=== PATIENT | male | born 1955 | race Caucasian/White ===

== ENCOUNTER → 2017-12-04 | Outpatient (REF) | payer OTHER ==
[2017-12-04 11:46] LABS: BASO % 0.7 % (0.0-1.0); EOS # 0.4 10^3/uL (0.0-0.50); EOS % 7.8 % (0.0-3.0); HEMATOCRIT 40.6 % (42.0-52.0); HEMOGLOBIN 13.2 g/dl (14.0-18.0); IMMATURE GRANULOCYTE % 0.4 % (0-0); LYMPH # 1.3 10^3/uL (1.5-4.5); LYMPH % 23.3 % (24.0-44.0); MEAN CORPUSCULAR HEMOGLOBIN 26.1 pg (27.0-33.0); MEAN CORPUSCULAR HGB CONC 32.5 g/dl (32.0-36.5); MEAN CORPUSCULAR VOLUME 80.4 fl (80.0-96.0); MONO # 0.4 10^3/uL (0.0-0.8); MONO % 7.4 % (0.0-5.0); NEUTROPHILS # 3.4 10^3/uL (1.8-7.7); NEUTROPHILS % 60.4 % (36.0-66.0); PLATELET COUNT, AUTOMATED 241 10^3/uL (150-450); RED BLOOD COUNT 5.05 10^6/uL (4.30-6.10); RED CELL DISTRIBUTION WIDTH 13.5 % (11.5-14.5); WHITE BLOOD COUNT 5.7 10^3/uL (4.0-10.0)
[2017-12-04 12:16] LABS: ALBUMIN/GLOBULIN RATIO 1.67 (1.00-1.93); ALKALINE PHOSPHATASE 80 U/L (45-117); ALT/SGPT 23 U/L (12-78); ANION GAP 7 MEQ/L (8-16); AST/SGOT 15 U/L (7-37); BILIRUBIN,TOTAL 0.5 MG/DL (0.2-1.0); BLOOD UREA NITROGEN 18 MG/DL (7-18); CALCIUM LEVEL 8.7 MG/DL (8.8-10.2); CARBON DIOXIDE LEVEL 30 MEQ/L (21-32); CHLORIDE LEVEL 105 MEQ/L (98-107); CHOLESTEROL LEVEL 178 MG/DL (<200); CHOLESTEROL RISK RATIO 3.423 (<5); CREATININE FOR GFR 0.84 MG/DL (0.70-1.30); GLOMERULAR FILTRATION RATE > 60.0 (>49); GLUCOSE, FASTING 85 MG/DL (80-110); HDL CHOLESTEROL 52 MG/DL (>40); LDL CHOLESTEROL 111.6 MG/DL (<100); NON-HDL-C 126 MG/DL; POTASSIUM SERUM 4.3 MEQ/L (3.5-5.1); SODIUM LEVEL 142 MEQ/L (136-145); TOTAL PROTEIN 6.4 GM/DL (6.4-8.2); TRIGLYCERIDES LEVEL 72 MG/DL (<150)
[2017-12-04 12:19] LABS: ESTIMATED AVERAGE GLUCOSE 111 MG/DL (60-110); HEMOGLOBIN A1c 5.5 %
[2017-12-04 12:52] LABS: CREATININE, URINE 59.3 MG/DL; MALB URINE SIEMENS < 5.0 MG/L; MAU/CREAT RATIO 8.4 MCG/MG (0.0-30.0)
== END ==
LOC: M SFHCLERA 08:38
DX: E78.2 Mixed hyperlipidemia (principal); I10 Essential (primary) hypertension; E66.3 Overweight

== ENCOUNTER → 2018-06-03 | Outpatient (REF) | payer SELFPAY, OTHER ==
[2018-06-03 11:58] LABS: BASO % 0.8 % (0.0-1.0); EOS # 0.2 10^3/uL (0.0-0.50); EOS % 3.5 % (0.0-3.0); HEMATOCRIT 40.9 % (42.0-52.0); HEMOGLOBIN 13.3 g/dl (13.5-17.5); LYMPH # 1.4 10^3/uL (1.5-4.5); LYMPH % 28.2 % (24.0-44.0); MEAN CORPUSCULAR HEMOGLOBIN 26.2 pg (27.0-33.0); MEAN CORPUSCULAR HGB CONC 32.5 g/dl (32.0-36.5); MEAN CORPUSCULAR VOLUME 80.5 fl (80.0-96.0); MONO # 0.5 10^3/uL (0.0-0.8); MONO % 10.2 % (0.0-5.0); NEUTROPHILS # 2.7 10^3/uL (1.8-7.7); NEUTROPHILS % 57.3 % (36.0-66.0); PLATELET COUNT, AUTOMATED 232 10^3/uL (150-450); RED BLOOD COUNT 5.08 10^6/uL (4.30-6.10); RED CELL DISTRIBUTION WIDTH 13.8 % (11.5-14.5); WHITE BLOOD COUNT 4.8 10^3/uL (4.0-10.0)
== END ==
LOC: M SFHCLERA 08:42
DX: D64.9 Anemia, unspecified (principal)

== ENCOUNTER → 2018-07-06 | Outpatient (REF) | payer OTHER ==
[2018-07-06 17:48] LABS: BASO % 0.5 % (0.0-1.0); EOS # 0.2 10^3/uL (0.0-0.50); EOS % 2.8 % (0.0-3.0); HEMATOCRIT 37.2 % (42.0-52.0); HEMOGLOBIN 11.9 g/dl (13.5-17.5); IMMATURE GRANULOCYTE % 0.2 % (0-3.0); LYMPH # 1.3 10^3/uL (1.5-4.5); MEAN CORPUSCULAR HEMOGLOBIN 26.6 pg (27.0-33.0); MEAN CORPUSCULAR VOLUME 83.2 fl (80.0-96.0); MONO # 0.5 10^3/uL (0.0-0.8); MONO % 8.5 % (0.0-5.0); PLATELET COUNT, AUTOMATED 255 10^3/uL (150-450); RED BLOOD COUNT 4.47 10^6/uL (4.30-6.10); RED CELL DISTRIBUTION WIDTH 14.3 % (11.5-14.5)
[2018-07-06 17:53] LABS: FERRITIN 61 NG/ML (26-388); IRON (FE) 62 UG/DL (65-175); TOTAL IRON BINDING CAPACITY 326 UG/DL (250-450)
== END ==
LOC: M SFHCLERA 11:56
DX: D64.9 Anemia, unspecified (principal)

== ENCOUNTER → 2018-12-30 | Outpatient (REF) | payer OTHER ==
[~2018-12-30] MED LIST: ASPI81TA85 PO; IMOD2CAP PO; MOTR200T44 PO; SIMV40TA2 PO; TOPR25TA13 PO; ZYRT10CA PO
[2018-12-30 11:56] LABS: APPEARANCE, URINE CLEAR (CLEAR); BACTERIA, URINE AUTO NEGATIVE (NEGATIVE); BILIRUBIN, URINE AUTO NEGATIVE (NEGATIVE); BLOOD, URINE BLOOD NEGATIVE (NEGATIVE); COLOR, URINE YELLOW (YELLOW); GLUCOSE, URINE (UA) AUTO NEGATIVE (NEGATIVE); KETONE, URINE AUTO NEGATIVE (NEGATIVE); LEUKOCYTE ESTERASE, URINE AUTO NEGATIVE (NEGATIVE); NITRITE, URINE AUTO NEGATIVE (NEGATIVE); PROTEIN, URINE AUTO NEGATIVE (NEGATIVE); RBC, URINE AUTO 0 /HPF (0-3); SPECIFIC GRAVITY URINE AUTO 1.012 (1.002-1.035); SQUAMOUS EPITHELIAL CELL UR AU 1 /HPF (0-6); UROBILINOGEN, URINE AUTO 0.2 mg/dL (0.0-2.0); WBC, URINE AUTO 0 /HPF (0-3)
[2018-12-30 12:02] LABS: BASO % 0.7 % (0.0-1.0); EOS # 0.3 10^3/uL (0.0-0.50); EOS % 4.8 % (0.0-3.0); LYMPH # 1.4 10^3/uL (1.5-4.5); MEAN CORPUSCULAR HEMOGLOBIN 26.6 pg (27.0-33.0); MEAN CORPUSCULAR HGB CONC 32.5 g/dl (32.0-36.5); MEAN CORPUSCULAR VOLUME 81.8 fl (80.0-96.0); MONO # 0.5 10^3/uL (0.0-0.8); MONO % 8.2 % (0.0-5.0); NEUTROPHILS # 3.5 10^3/uL (1.8-7.7); NEUTROPHILS % 62.1 % (36.0-66.0); PLATELET COUNT, AUTOMATED 244 10^3/uL (150-450); RED BLOOD COUNT 4.89 10^6/uL (4.30-6.10); WHITE BLOOD COUNT 5.6 10^3/uL (4.0-10.0)
[2018-12-30 12:10] LABS: ALBUMIN 3.8 GM/DL (3.2-5.2); ALT/SGPT 39 U/L (12-78); BILIRUBIN,TOTAL 0.4 MG/DL (0.2-1.0); BLOOD UREA NITROGEN 16 MG/DL (7-18); CALCIUM LEVEL 8.4 MG/DL (8.8-10.2); CARBON DIOXIDE LEVEL 30 MEQ/L (21-32); CHLORIDE LEVEL 103 MEQ/L (98-107); CHOLESTEROL LEVEL 196 MG/DL (<200); FERRITIN 135 NG/ML (26-388); GLOMERULAR FILTRATION RATE > 60.0 (>49); GLUCOSE, FASTING 93 MG/DL (70-100); HDL CHOLESTEROL 46 MG/DL (>40); IRON (FE) 107 UG/DL (65-175); LDL CHOLESTEROL 131 MG/DL (<100); NON-HDL-C 150 MG/DL; PERCENT SATURATION 36.4 % (19.7-50.0); POTASSIUM SERUM 4.3 MEQ/L (3.5-5.1); SODIUM LEVEL 139 MEQ/L (136-145); TOTAL IRON BINDING CAPACITY 294 UG/DL (250-450); TOTAL PROTEIN 6.1 GM/DL (6.4-8.2); TRIGLYCERIDES LEVEL 95 MG/DL (<150)
[2018-12-30 12:43] LABS: HEMOGLOBIN A1c 5.9 %
== END ==
LOC: M SFHCLERA 08:36
PROVIDERS: ATTEND Family Medicine
DX: E78.5 Hyperlipidemia, unspecified (principal); D50.9 Iron deficiency anemia, unspecified

== ENCOUNTER → 2019-06-29 | Outpatient (REF) | payer OTHER ==
[~2019-06-29] MED LIST changes: +TOPR25TA PO; -TOPR25TA13 PO
[2019-06-29 13:15] LABS: HEMATOCRIT 41.3 % (42.0-52.0); HEMOGLOBIN 13.2 g/dl (13.5-17.5)
[2019-06-29 13:24] LABS: CHOLESTEROL RISK RATIO 3.23 (<5)
[2019-06-29 13:44] LABS: HEMOGLOBIN A1c 6.1 %
== END ==
LOC: M SFHCLERA 08:23
PROVIDERS: ATTEND Family Medicine
DX: Z11.59 Encounter for screening for other viral diseases (principal); Z12.5 Encounter for screening for malignant neoplasm of prostate; E78.5 Hyperlipidemia, unspecified; D64.9 Anemia, unspecified; R73.02 Impaired glucose tolerance (oral)

== ENCOUNTER → 2019-07-01 | Outpatient (REF) | payer OTHER | LOC: M SMT 13:11 | PROVIDERS: ATTEND Nurse Practitioner Family | DX: R97.20 Elevated prostate specific antigen [PSA] (principal) ==

== ENCOUNTER → 2019-07-13 | Outpatient (CLI) | payer OTHER ==
[~2019-07-13] MED LIST changes: +FERR325T81 PO; +LISI10TA4 PO; -SIMV40TA2 PO; +SIMV40TA20 PO
--- NOTE | 2019-07-13 14:01 | REP ---
TRANSRECTAL ULTRASOUND PROSTATE WITH ULTRASOUND GUIDANCE FOR PROSTATE BIOPSY: Real-time ultrasound evaluation of prostate performed utilizing transrectal probe. Size of the gland is 3.8 x 3.0 x 4.9 cm for a total volume of 29.5 mL. Hypoechoic nodule in the mid apex measures 5 x 4 mm. Hypoechoic nodule in the left apex measures 13 x 7 mm. Scattered cysts and calcifications are also noted. Ultrasound guidance was provide for Dr. Moore who performed ultrasound-guided biopsy of the prostate. Electronically Signed by Jamarcus Patterson MD 07/14/2019 09:44 A
== END ==
LOC: M SMT PRO 10:17
PROVIDERS: ATTEND Urology
DX: C61 Malignant neoplasm of prostate (principal)
CPT/HCPCS: 76872; 76942; G0416

== ENCOUNTER → 2019-07-19 | Outpatient (CLI) | payer OTHER ==
[~2019-07-19] MED LIST changes: -FERR325T81 PO; -LISI10TA4 PO; +SIMV40TA2 PO; -SIMV40TA20 PO
[2019-07-19 17:56] LABS: BLOOD UREA NITROGEN 18 MG/DL (7-18); CALCIUM LEVEL 8.7 MG/DL (8.8-10.2); CARBON DIOXIDE LEVEL 28 MEQ/L (21-32); CHLORIDE LEVEL 106 MEQ/L (98-107); CREATININE FOR GFR 1.06 MG/DL (0.70-1.30); GLOMERULAR FILTRATION RATE > 60.0 (>49); GLUCOSE, FASTING 103 MG/DL (70-100); POTASSIUM SERUM 3.8 MEQ/L (3.5-5.1); SODIUM LEVEL 140 MEQ/L (136-145)
== END ==
LOC: M SMT 15:33
PROVIDERS: ATTEND Urology
DX: C61 Malignant neoplasm of prostate (principal)

== ENCOUNTER → 2019-07-28 | Outpatient (CLI) | payer OTHER ==
[~2019-07-28] MED LIST changes: +FERR325T81 PO; +ISOVUE-370 76% 100ML VIAL (Q9967) As Ordered ONE; +LISI10TA4 PO; -SIMV40TA2 PO; +SIMV40TA20 PO
--- NOTE | 2019-07-28 16:21 | REP ---
Clinical: History of prostate cancer. Technique: Axial contrast enhanced images from the lung bases to the pubic symphysis using 100 ml Isovue 370 intravenous contrast material with delayed images of the abdomen as well as coronal and sagittal re-formations. Comparison: 06/03/2016. Findings: Lung bases demonstrate minimal chronic changes. Visualized heart and pericardium normal. Fatty infiltration to the liver noted without focal hepatic lesion. Spleen, pancreas, gallbladder, bilateral adrenal glands and kidneys are normal. The enteric system is without obstruction or acute inflammatory process. Normal terminal ileum and appendix are identified in the right lower quadrant. Sigmoid diverticula noted without acute diverticulitis. Pelvis demonstrates mildly prominent and heterogeneous enhancement to the prostate gland with mass effect on the base of the bladder. No periprostatic stranding, fluid or pelvic adenopathy is appreciated. Abdominal aorta and vasculature appear normal. No ascites. No free air. No intraperitoneal or retroperitoneal adenopathy. Musculoskeletal structures demonstrate degenerative changes without focal osseous abnormality. Impression: 1. Hepatic steatosis. 2. Mildly prominent heterogeneous enhancement to the prostate gland with mass effect on the bladder but no associated adenopathy or obvious pelvic mass/metastatic disease. 3. Sigmoid diverticula without acute diverticulitis. Electronically Signed by Zach Coyle MD 07/28/2019 04:12 P
== END ==
LOC: M RAD 15:41
PROVIDERS: ATTEND Urology
DX: C61 Malignant neoplasm of prostate (principal); K76.0 Fatty (change of) liver, not elsewhere classified
CPT/HCPCS: 74177; Q9967

== ENCOUNTER → 2019-07-30 | Outpatient (CLI) | payer OTHER ==
[~2019-07-30] MED LIST changes: -FERR325T81 PO; -ISOVUE-370 76% 100ML VIAL (Q9967) As Ordered ONE; -LISI10TA4 PO; +SIMV40TA2 PO; -SIMV40TA20 PO
--- NOTE | 2019-07-30 14:49 | REP ---
WHOLE BODY BONE SCAN: HISTORY: Prostate carcinoma. TECHNIQUE: 21.9 mCi technetium 99m MDP is injected and standard whole body bone scan imaging was acquired. No comparison scintigraphy. FINDINGS: There is a focus of mildly increased uptake in the mandibular ramus on the right side which may reflect periodontal disease although this cannot be stated with confidence. There is an arthritic pattern of increased uptake in the knees and shoulders bilaterally and in the small joints of the hands. There is mild degenerative disc uptake in the thoracic spine and to a lesser extent, in the lumbar spine. There is uptake in bilateral kidneys and in the urinary bladder. There is no compelling evidence to suggest skeletal metastatic disease. IMPRESSION: No definite evidence of metastatic disease. Right mandibular uptake of uncertain significance possibly periodontal or dental inflammation. Electronically Signed by Seth Rodriguez MD 07/30/2019 04:44 P
== END ==
LOC: M RAD 09:52
PROVIDERS: ATTEND Urology
DX: C61 Malignant neoplasm of prostate (principal)

== ENCOUNTER → 2019-08-17 | Outpatient (CLI) | payer OTHER ==
[~2019-08-17] MED LIST changes: +FERR325T81 PO; +LISI10TA4 PO
--- NOTE | 2019-08-18 16:18 | RADONC ---
RADIATION ONCOLOGY CONSULTATION NOTE DATE: 08/17/2019 CHART NUMBER: [id number] DIAGNOSIS: Prostate cancer. STAGE: III A, T2c, N0, M0, PSA 37.1, grade group 3, [place] score 7 (4-3). ECOG PERFORMANCE STATUS: 0 CONSULTATION NOTE: Mr. Suazo is a very pleasant, 63-year-old white male with the diagnosis of what appears to be a stage III A, T2c, N0, M0, moderate to poorly differentiated [place] score 7 (4-3) adenocarcinoma of the prostate, grade group 3 with a PSA score of 37.1 who is presenting to us today in consultation regarding the possibilities of definitive external beam radiation therapy with IMRT/IGRT. HISTORY OF PRESENT ILLNESS: The patient was in his usual state of health but routine PSA was done on 06/29/2019 and was 37.10. On 07/13/2019, the patient underwent prostate needle biopsy and pathology revealed a [place] score 7 (403) adenocarcinoma of prostate. He has since initiated hormonal therapy and is now presenting to us for discussion of definitive external beam radiation therapy with IMRT/IGRT. ALLERGIES: The patient has NO KNOWN DRUG ALLERGIES. PAST MEDICAL HISTORY: The patient's past medical history is positive for hypertension and arthritis. He has had a cardiac cath 2 years ago, and has had a tonsillectomy and appendectomy. He has a history of C diff and Giardia. SOCIAL HISTORY: The patient does not smoke cigarettes nor abuse alcohol. FAMILY HISTORY: The patient's family history is positive for a father with throat cancer and a mother with ovarian cancer. REVIEW OF SYSTEMS: The patient's review of systems is noncontributory. Denies nausea, vomiting, fevers, chills, night sweats, diplopia, headaches, anxiety or depression, anorexia, weight loss, visual disturbances, chest pain, urinary or bowel difficulties, bone pain, or neurological problems. PHYSICAL EXAMINATION: The patient is a well-developed, well-nourished male in no acute distress. HEENT exam is normocephalic, atraumatic. Extraocular movements are intact. There is no palpable cervical, supraclavicular, infraclavicular, axillary, or inguinal lymphadenopathy present. Lungs are clear to auscultation and percussion. Heart has a regular rate and rhythm. Abdomen is benign with no hepatosplenomegaly, masses, or tenderness. Rectal examination reveals a normal anal sphincter tone. His prostate is smooth with no evidence of nodularity. Skeletal examination reveals no tenderness to pressure or percussion of the bony skeleton. Extremities reveal no clubbing, cyanosis, or edema. Neurologic exam is grossly intact, as is the remainder of the physical examination. MEDICAL NECESSITY: IMRT/IGRT is clinically indicated for the highly conformal dose planning required. The target volume is in close proximity to critical structures, such as the rectum, bladder, small bowel, and femoral heads. The volume of interest must be covered with narrow margins to adequately protect immediately adjacent structures. The plan requires interpretation of complex testing such as CT localization. As noted above, special planning (IMRT) and localizing (IGRT) is required and essential to maximally protect sensitive normal tissue structures which cannot be accomplished using conventional 3-dimensional planning. ASSESSMENT: Clearly the patient is a candidate for external beam radiation therapy and I have so informed him. I have discussed with the patient in detail the potential benefits as well as possible acute and chronic sequelae of external beam radiation therapy. We have discussed logistics of treatment planning, simulation and subsequent fractionated daily radiation treatments. The patient is scheduled for placement of fiducial markers on August 31. I am scheduling the patient for subsequent initiation of treatment planning and CT simulation approximately 2 weeks later. Thank you for allowing us to participate in the care of this very pleasant gentleman. If I could be of any further assistance or provide you with any information, please free to contact me anytime. As always, warm regards. cc: MD Jamarcus Bonilla MD
== END ==
LOC: M ONCR 08:53
PROVIDERS: ATTEND Radiology Radiation Oncology
DX: C61 Malignant neoplasm of prostate (principal)

== ENCOUNTER → 2019-08-31 | Outpatient (CLI) | payer OTHER ==
--- NOTE | 2019-08-31 16:46 | REP ---
Transrectal sonographic guidance: History: Prostate carcinoma. Findings: Transrectal sonographic guidance is provided to Dr. Moore who performed fiducial marker placement procedure. Electronically Signed by Seth Rodriguez MD 08/31/2019 04:56 P
== END ==
LOC: M SMT 08:07
PROVIDERS: ATTEND Urology
DX: C61 Malignant neoplasm of prostate (principal)

== ENCOUNTER → 2019-09-23 | Outpatient (RCR) | payer OTHER ==
[2019-09-15 14:49] LABS: HEMATOCRIT 38.8 % (42.0-52.0); HEMOGLOBIN 12.8 g/dl (13.5-17.5); LYMPH % 25.3 % (24.0-44.0); MEAN CORPUSCULAR HEMOGLOBIN 26.4 pg (27.0-33.0); MEAN CORPUSCULAR VOLUME 79.9 fl (80.0-96.0); NEUTROPHILS # 4.4 10^3/uL (1.8-7.7); NEUTROPHILS % 66.2 % (36.0-66.0); RED BLOOD COUNT 4.85 10^6/uL (4.30-6.10); WHITE BLOOD COUNT 6.7 10^3/uL (4.0-10.0)
--- NOTE | 2019-09-16 10:00 | RADONC ---
RADIATION ONCOLOGY SIMULATION NOTE DATE: 09/15/2019 This is a diagnosis who has a diagnosis of prostate cancer. The patient was placed in a supine position and an immobilization device was constructed for patient's stability to ensure accurate treatments on a day-to-day basis. He was then scanned via our CT simulator at 3-mm intervals to capture images for external contouring and contouring of vital organs within the pelvis. He tolerated this whole entire process quite well with no untoward events. I was present during the entire simulation process. We will now utilize these images for contouring of internal and external structures in order to formulated an appropriate IMRT/IGRT plan. LORI
== END ==
LOC: M ONCR 09-15 13:48
PROVIDERS: ATTEND Radiology Radiation Oncology
DX: C61 Malignant neoplasm of prostate (principal)

== ENCOUNTER 2019-10-20 15:05 | Outpatient (RCR) | payer OTHER ==
--- NOTE | 2019-09-27 15:58 | RADONC ---
RADIATION ONCOLOGY PROGRESS NOTE DATE: 09/27/2019 CHART NUMBER: [id number] PROGRESS NOTE: Mr. Cameron Suazo with an adenocarcinoma of the prostate is currently receiving local regional radiotherapy and he has achieved a dose of 540 cGy thus far. The treatments have been well tolerated as he denies any side effects related to his disease or to his treatments. REVIEW OF SYSTEMS: He specifically denies any nausea, vomiting, diarrhea, dysuria, hematuria or blood per rectum. His energy level is satisfactory and he is able to maintain most of his day-to-day activities without any alteration of his lifestyle. Skin irritation is denied. EXAMINATION FINDINGS: The skin within the irradiated volume shows neither erythema nor desquamation. Lymphatics no palpable peripheral lymphadenopathy is appreciated. Lungs are clear. The remainder of the examination findings are unchanged. IMPRESSION: Tolerating therapy well. PLAN: Treatments to continue.
--- NOTE | 2019-10-04 16:28 | RADONC ---
RADIATION ONCOLOGY PROGRESS NOTE DATE: 10/04/2019 CHART NUMBER: [id number] PROGRESS NOTE: Mr. Suazo is presently at a dose of 1440 cGy to his prostate and is tolerating treatments quite well at this point with no significant difficulties related to his radiation therapy other than some rectal urgency. REVIEW OF SYSTEMS: The patient's review of systems is positive for rectal urgency, but is otherwise noncontributory. Denies nausea, vomiting, fevers, chills, night sweats, diplopia, headaches, anxiety or depression, anorexia, weight loss, visual disturbances, chest pain, urinary or bowel difficulties, bone pain, or neurological problems. PHYSICAL EXAMINATION: The patient's skin is in good condition with no evidence of moist or dry desquamation. The remainder of his physical exam remains unchanged. Mr. Suazo is tolerating treatments quite well and radiation will continue as scheduled. He has been given dietary recommendations and a recommendation to use Imodium if he is having significant loose bowel movements.
--- NOTE | 2019-10-12 11:24 | RADONC ---
RADIATION ONCOLOGY PROGRESS NOTE DATE: 10/11/2019 CHART NUMBER: [id number] Mr. Suazo is presently at a dose of 2340 cGy to his prostate and seminal vesicles and is tolerating treatments quite well at this point with no complaints related to his radiation therapy. He is having no urinary or bowel difficulties and no bone pain. The patient's review of systems is noncontributory. He denies nausea, vomiting, fevers, chills, night sweats, diplopia, headaches, anxiety or depression, anorexia, weight loss, visual disturbances, chest pain, urinary or bowel difficulties, bone pain, or neurological problems. PHYSICAL EXAMINATION: The patient's skin is in good condition with no evidence of moist or dry desquamation. The remainder of the physical exam remains unchanged. Mr. Suazo is tolerating treatments quite well and radiation will continue as scheduled.
--- NOTE | 2019-10-20 09:06 | RADONC ---
RADIATION ONCOLOGY PROGRESS NOTE DATE OF SERVICE: 10/18/2019 CHART NUMBER: [id number] Mr. Suazo is presently at a dose of 3240 cGy to his prostate and is tolerating treatments quite well at this point with no complaints at this time related to his radiation therapy other than some loose bowel movements. The patient's review of systems is positive for some loose bowel movements but is otherwise noncontributory. Denies nausea, vomiting, fevers, chills, night sweats, diplopia, headaches, anxiety or depression, anorexia, weight loss, visual disturbances, chest pain, urinary or bowel difficulties, bone pain, or neurological problems. PHYSICAL EXAMINATION: The patient's skin is in good condition with no evidence of radiation change present. There is no moist or dry desquamation. The remainder of his physical exam remains unchanged. Mr. Suazo is tolerating treatments quite well and radiation will continue as scheduled.
[~2019-10-20 15:05] MED LIST changes: -SIMV40TA2 PO; +SIMV40TA20 PO
== END 2019-10-23 ==
LOC: M ONCR 15:05
PROVIDERS: ATTEND Radiology Radiation Oncology
DX: C61 Malignant neoplasm of prostate (principal)

== ENCOUNTER → 2019-11-23 | Outpatient (RCR) | payer OTHER ==
--- NOTE | 2019-10-27 07:23 | RADONC ---
RADIATION ONCOLOGY TREATMENT NOTE DATE OF SERVICE: 10/26/2019 Mr. Suazo carries the diagnosis of prostate CA. So far, he has received a dose of 3960 cGy in 22 fractions. He has more frequent bowel movements, but he said not loose or constipated. He has no urinary symptoms. He denies any nausea or vomiting. His weight is stable. No bone pains. Otherwise, he tolerates treatment well and treatment will continue as planned. MTDD
--- NOTE | 2019-11-02 00:13 | RADONC ---
RADIATION ONCOLOGY PROGRESS NOTE DATE: 11/01/2019 CHART NUMBER: [id number] Mr. Suazo is presently at a dose of 4500 cGy to his prostate and is tolerating treatments quite well at this point with no complaints related to his radiation therapy. He is having no urinary or bowel difficulties and no bone pain. REVIEW OF SYSTEMS: The patient's review of systems is noncontributory. He denies nausea, vomiting, fevers, chills, night sweats, diplopia, headaches, anxiety or depression, anorexia, weight loss, visual disturbances, chest pain, urinary or bowel difficulties, bone pain, or neurological problems. PHYSICAL EXAMINATION: The patient's skin is in good condition with no evidence of radiation change present. There is no moist or dry desquamation. The remainder of his physical exam remains unchanged. Mr. Suazo is tolerating treatments quite well and radiation will continue as scheduled.
--- NOTE | 2019-11-10 08:39 | RADONC ---
RADIATION ONCOLOGY PROGRESS NOTE DATE: 11/08/2019 CHART #: [id number] Mr. Suazo is presently at a dose of 5580 cGy to his prostate and is tolerating treatments quite well at this point with no significant difficulties related to his radiation therapy. He is having no significant urinary or bowel problems and no bone pain. REVIEW OF SYSTEMS: The patient's review of systems is noncontributory. Denies nausea, vomiting, fevers, chills, night sweats, diplopia, headaches, anxiety or depression, anorexia, weight loss, visual disturbances, chest pain, urinary or bowel difficulties, bone pain, or neurological problems. PHYSICAL EXAMINATION: The patient's skin is in good condition with no evidence of moist or dry desquamation. The remainder of his physical exam remains unchanged. Mr. Suazo is tolerating treatments quite well and radiation will continue as scheduled.
--- NOTE | 2019-11-23 12:47 | RADONC ---
RADIATION ONCOLOGY PROGRESS NOTE DATE OF SERVICE: 11/22/2019 CHART NUMBER: [id number] Mr. Suazo, with a diagnosis of adenocarcinoma of the prostate stage III A, [id number], is currently receiving local regional radiotherapy and he has achieved a dose to date of 6120 cGy of a proposed 7920 cGy. He is tolerating his therapy well and has no problems related to his disease or to his treatments. He specifically denies any nausea, vomiting, diarrhea, dysuria, hematuria or blood per rectum. His energy level is excellent and he is able to maintain most of his day-to-day activities without any alteration of his lifestyle. Skin irritation is not reported. PHYSICAL EXAMINATION: The skin within the irradiated volume shows neither erythema nor desquamation. Lymphatics: No palpable peripheral lymphadenopathy is appreciated. Lungs are clear. Heart is regular without murmurs. Abdomen is without evidence of hepatomegaly, masses, deep abdominal tenderness. Remainder of this examination is unchanged. IMPRESSION: Tolerating therapy well. PLAN: Treatments to continue. Thank you for allowing us the opportunity of participation in the joint management of this very fine gentleman.
== END ==
LOC: M ONCR 10-25 15:06
PROVIDERS: ATTEND Radiology Radiation Oncology
DX: C61 Malignant neoplasm of prostate (principal)

== ENCOUNTER 2019-11-30 15:05 | Outpatient (RCR) | payer OTHER ==
--- NOTE | 2019-11-30 06:45 | RADONC ---
RADIATION ONCOLOGY PROGRESS NOTE DATE: 11/29/2019 CHART NUMBER: [id number] Mr. Suazo is presently approaching completion of external beam radiation therapy. He completes treatments tomorrow. The patient is doing quite well at this time with no urinary or bowel symptoms and no other problems. REVIEW OF SYSTEMS: The patient's review of systems is noncontributory. He denies nausea, vomiting, fevers, chills, night sweats, diplopia, headaches, anxiety or depression, anorexia, weight loss, visual disturbances, chest pain, urinary or bowel difficulties, bone pain or neurological problems. PHYSICAL EXAMINATION: The patient's skin shows no evidence of moist or dry desquamation. The remainder of his physical exam remains unchanged. Mr. Suazo is tolerating treatments quite well and radiation is scheduled for completion tomorrow.
--- NOTE | 2019-12-01 09:26 | RADONC ---
RADIATION ONCOLOGY TREATMENT SUMMARY DATE: 11/30/2019 CHART NUMBER: [id number] DIAGNOSIS: Prostate cancer. STAGE: IIIA, [id number], PSA 3.1, grade group 3, [place] score 7 (4-3). ECOG PERFORMANCE STATUS: 0 TREATMENT SUMMARY: Mr. Suazo is a very pleasant 64-year-old white male with the diagnosis of what appears to be a stage IIIA, [id number], moderate to poorly differentiated [place] 7 (4-3) adenocarcinoma of the prostate, grade group 3 with a PSA level of 37.1 who presented to us for consideration of definitive external beam radiation therapy with IMRT/IGRT. We treated the patient to the prostate for a total dose of 7920 cGy delivered in 44 fractions of 180 cGy each over 62 elapsed days from 09/23/2019 through 11/30/2019. The patient's prostate was treated on a linear accelerator utilizing a 6 MV photon beam via IMRT/IGRT. We initially treated the prostate, seminal vesicles and first echelon of lymph nodes to a dose of 4500 cGy and subsequently coned down to the prostate and seminal vesicles to deliver an additional 900 cGy bringing the seminal vesicles to a total dose of 5400 cGy. We then boosted the prostate itself for an additional 2520 cGy, once again bringing the prostate to a total of 7920 cGy. Mr. Suazo tolerated his treatments quite well and was able to complete therapy as prescribed without interruption. I have scheduled the patient to see me again in 1 month for further followup. He will also continue to be followed by his other physicians as well. cc: MD Jamarcus oBnilla MD
== END 2019-12-24 ==
LOC: M ONCR 15:05
PROVIDERS: ATTEND Radiology Radiation Oncology
DX: C61 Malignant neoplasm of prostate (principal)

== ENCOUNTER → 2019-12-30 | Outpatient (CLI) | payer OTHER | LOC: M LRY 08:49 | PROVIDERS: ATTEND Radiology Radiation Oncology | DX: C61 Malignant neoplasm of prostate (principal) ==

== ENCOUNTER → 2019-12-30 | Outpatient (REF) | payer OTHER ==
[2019-12-30 12:04] LABS: BASO % 0.7 % (0.0-1.0); EOS # 0.3 10^3/uL (0.0-0.5); EOS % 5.7 % (0.0-3.0); HEMATOCRIT 38.9 % (42.0-52.0); HEMOGLOBIN 12.5 g/dl (13.5-17.5); LYMPH # 0.6 10^3/uL (1.5-5.0); LYMPH % 12.5 % (24.0-44.0); MEAN CORPUSCULAR HEMOGLOBIN 27.1 pg (27.0-33.0); MEAN CORPUSCULAR HGB CONC 32.1 g/dl (32.0-36.5); MEAN CORPUSCULAR VOLUME 84.4 fl (80.0-96.0); MONO # 0.5 10^3/uL (0.0-0.8); MONO % 10.5 % (0.0-5.0); NEUTROPHILS # 3.2 10^3/uL (1.5-8.5); NEUTROPHILS % 70.4 % (36.0-66.0); PLATELET COUNT, AUTOMATED 225 10^3/uL (150-450); RED BLOOD COUNT 4.61 10^6/uL (4.30-6.10); WHITE BLOOD COUNT 4.6 10^3/uL (4.0-10.0)
[2019-12-30 12:16] LABS: ALT/SGPT 43 U/L (12-78); BILIRUBIN,TOTAL 0.4 MG/DL (0.2-1.0); BLOOD UREA NITROGEN 15 MG/DL (7-18); CALCIUM LEVEL 9.2 MG/DL (8.8-10.2); CARBON DIOXIDE LEVEL 33 MEQ/L (21-32); CHLORIDE LEVEL 103 MEQ/L (98-107); CHOLESTEROL LEVEL 171 MG/DL (<200); CHOLESTEROL RISK RATIO 2.758 (<5); FERRITIN 202 NG/ML (26-388); GLOMERULAR FILTRATION RATE > 60.0 (>49); GLUCOSE, FASTING 88 MG/DL (70-100); HDL CHOLESTEROL 62 MG/DL (>40); IRON (FE) 56 UG/DL (65-175); LDL CHOLESTEROL 81 MG/DL (<100); NON-HDL-C 109 MG/DL; PERCENT SATURATION 17.4 % (19.7-50.0); POTASSIUM SERUM 4.3 MEQ/L (3.5-5.1); SODIUM LEVEL 140 MEQ/L (136-145); TOTAL IRON BINDING CAPACITY 322 UG/DL (250-450); TOTAL PROTEIN 6.4 GM/DL (6.4-8.2); TRIGLYCERIDES LEVEL 141 MG/DL (<150)
[2019-12-30 12:43] LABS: HEMOGLOBIN A1c 5.9 %
== END ==
LOC: M SFHCLERA 08:14
PROVIDERS: ATTEND Family Medicine
DX: R73.02 Impaired glucose tolerance (oral) (principal); D50.9 Iron deficiency anemia, unspecified

== ENCOUNTER → 2020-01-05 | Outpatient (CLI) | payer OTHER ==
--- NOTE | 2020-01-06 11:16 | RADONC ---
RADIATION ONCOLOGY DATE: 01/05/2020 CHART NUMBER: [id number] DIAGNOSIS Prostate cancer. STAGE: III A, T2c N0 M0. His original PSA was 37.1. Moo score 7 (4+3). Mr. Suazo is a very pleasant 64-year-old gentleman who carries the diagnosis of stage III A prostate CA, T2c N0 M0 [place] 7 (4+3) and PSA 37.1. He was recommended ADT and radiation therapy. The radiation therapy was completed on 11/30/2019 and he is on ADT scheduled for a third injection in 3 months. INTERVAL HISTORY: He has no issues since completion of treatment. He said his nocturia is much improved. Now it is a couple of times a night. It used to be every hour or 1-1/2 hours. He is getting energy back. SYSTEMIC REVIEW: He denies any recent weight changes, weight loss, fatigue. However, he is still experiencing hot flashes. HEENT: Denies any visual problems or hearing problems. Respiratory: He has no wheezing or coughing. Cardiovascular: Denies palpitation or chest pain. Gastrointestinal: Denies nausea, vomiting, diarrhea, constipation or gastroesophageal reflux disease. Genitourinary: He denies any urinary frequency during the daytime. Nocturia is much improved two a night. No urgency. Musculoskeletal: Denies any bone pain, arthritis. PHYSICAL EXAMINATION: Patient is a well-developed, nourished, not in apparent distress. HEENT: Normocephalic. There are no palpable lymphadenopathies in the neck or axilla bilaterally. Lungs: Clear to auscultation. Heart is regular rate and rhythm. Abdomen is soft, nontender, nondistended without any possible mass or organomegaly. Skeletal examination: There are no bony tenderness over the spine or rib cages. Extremities: No swelling or cyanosis. Musculoskeletal intact. He has mild gynecomastia in both breasts. ASSESSMENT AND RECOMMENDATION: This is a pleasant 64-year-old gentleman who carries the diagnosis of stage III A prostate CA, [place] 7 (4+3) and a PSA of 37.1. He started hormone therapy and completed radiation therapy on November 30, 2019. His last PSA was at the start of ADT was 3.1 and at the completion of treatment, most recent PSA on 12/30/2019 was reported to be 1.13. He was advised continuous followup care wit the physicians involved and he was also asked to return here in 3 months for followup. LORI
== END ==
LOC: M ONCR 09:16
PROVIDERS: ATTEND Radiology Radiation Oncology
DX: C61 Malignant neoplasm of prostate (principal)

== ENCOUNTER → 2020-03-01 | Outpatient (REF) | payer OTHER | LOC: M LABSMT 13:57 | PROVIDERS: ATTEND Urology | DX: C61 Malignant neoplasm of prostate (principal) ==

== ENCOUNTER → 2020-04-05 | Outpatient (CLI) | payer OTHER ==
--- NOTE | 2020-04-09 14:20 | RADONC ---
RADIATION ONCOLOGY CONSULTATION NOTE DATE: 04/05/2020 This is a telemedicine visit. The patient was informed of the risks including security breech, technological failure, inability to perform a comprehensive physical exam which could delay or prevent an accurate diagnosis, and potential complications from treatment decisions rendered over a telemedicine platform. The patient understands and consented to the use of telehealth services phone only. CHART NUMBER: [id number] DIAGNOSIS: Prostate cancer. STAGE: III A, T2c, N0, M0, PSA 37.1, grade group 3, [place] score 7 (4-3). ECOG PERFORMANCE STATUS: 0 FOLLOWUP NOTE: Mr. Suazo is a very pleasant 64-year-old white male with the diagnosis of a stage III, T2c, N0, M0 moderate to poorly differentiated [place] score 7 (4-3) adenocarcinoma of prostate, grade group 3 with a PSA level initially at 37.1 who is presenting to us today for routine followup visit 4 months post completion of external beam radiation therapy. The patient presents today reporting that he is doing quite well with no complaints at this time related to his radiation therapy or disease. He has no urinary or bowel difficulties and no bone pain. REVIEW OF SYSTEMS: The patient's review of systems is noncontributory. Denies nausea, vomiting, fevers, chills, night sweats, diplopia, headaches, anxiety or depression, anorexia, weight loss, visual disturbances, chest pain, urinary or bowel difficulties, bone pain, or neurological problems. PHYSICAL EXAMINATION: Physical exam was deferred as this was a telephone consultation. ASSESSMENT: The patient is clinically ROLANDO at this time. He is scheduled to see Dr. Moore in August, who is continuing with his hormonal treatments and doing routine followup as well. In light of that, I am discharging this patient from my followup at this time except on a p.r.n. basis. cc: MD Jamarcus Bonilla MD
== END ==
LOC: M ONCR 09:19
PROVIDERS: ATTEND Radiology Radiation Oncology
DX: C61 Malignant neoplasm of prostate (principal)

== ENCOUNTER → 2020-09-05 | Outpatient (REF) | payer OTHER ==
[~2020-09-05] MED LIST changes: -ASPI81TA85 PO; +ASPI81TA86 PO
== END ==
LOC: M PLALAB 10:28
PROVIDERS: ATTEND Urology
DX: C61 Malignant neoplasm of prostate (principal)

== ENCOUNTER → 2021-03-09 | Outpatient (REF) | payer OTHER ==
[~2021-03-09] MED LIST changes: +LISI10TA22 PO; -LISI10TA4 PO
== END ==
LOC: M PLALAB 16:56
PROVIDERS: ATTEND Urology
DX: C61 Malignant neoplasm of prostate (principal)

== ENCOUNTER → 2021-09-17 | Outpatient (CLI) | payer OTHER | LOC: M WUC 15:20 | PROVIDERS: ATTEND Urology | DX: C61 Malignant neoplasm of prostate (principal) ==

== ENCOUNTER → 2021-11-08 | Outpatient (CLI) | payer OTHER ==
[2021-11-08 12:25] LABS: BASO % 0.4 % (0.0-1.0); EOS # 0.2 10^3/uL (0.0-0.5); EOS % 3.8 % (0.0-3.0); HEMOGLOBIN 12.3 g/dl (13.5-17.5); LYMPH # 0.7 10^3/uL (1.5-5.0); LYMPH % 13.1 % (24.0-44.0); MEAN CORPUSCULAR HEMOGLOBIN 26.4 pg (27.0-33.0); MEAN CORPUSCULAR HGB CONC 31.5 g/dl (32.0-36.5); MEAN CORPUSCULAR VOLUME 83.7 fl (80.0-96.0); MONO # 0.4 10^3/uL (0.0-0.8); MONO % 8.4 % (2.0-8.0); NEUTROPHILS # 3.9 10^3/uL (1.5-8.5); NEUTROPHILS % 74.1 % (36.0-66.0); PLATELET COUNT, AUTOMATED 355 10^3/uL (150-450); RED BLOOD COUNT 4.66 10^6/uL (4.30-6.10); WHITE BLOOD COUNT 5.3 10^3/uL (4.0-10.0)
[2021-11-08 13:00] LABS: BLOOD UREA NITROGEN 14 MG/DL (7-18); CALCIUM LEVEL 9.2 MG/DL (8.8-10.2); CARBON DIOXIDE LEVEL 31 MEQ/L (21-32); CHLORIDE LEVEL 105 MEQ/L (98-107); CHOLESTEROL LEVEL 154 MG/DL (<200); CREATININE FOR GFR 0.75 MG/DL (0.70-1.30); FERRITIN 390 NG/ML (26-388); GLOMERULAR FILTRATION RATE > 60.0 (>49); GLUCOSE, FASTING 100 MG/DL (70-100); HDL CHOLESTEROL 50 MG/DL (>40); IRON (FE) 39 UG/DL (65-175); LDL CHOLESTEROL 87 MG/DL (<100); NON-HDL-C 104 MG/DL; PERCENT SATURATION 16.8 % (19.7-50.0); POTASSIUM SERUM 4.2 MEQ/L (3.5-5.1); SODIUM LEVEL 141 MEQ/L (136-145); TOTAL IRON BINDING CAPACITY 232 UG/DL (250-450); TRIGLYCERIDES LEVEL 86 MG/DL (<150)
[2021-11-08 13:17] LABS: HEMOGLOBIN A1c 5.7 %
== END ==
LOC: M WUC 09:23
PROVIDERS: ATTEND Family Medicine
DX: R73.03 Prediabetes (principal); D64.9 Anemia, unspecified; Z13.220 Encounter for screening for lipoid disorders

== ENCOUNTER → 2022-02-21 | Outpatient (CLI) | payer OTHER ==
[~2022-02-21] MED LIST changes: +CLAR10CA3 PO; +ECOT81TA5 PO
== END ==
LOC: M LABSMTC 11:45
PROVIDERS: ATTEND Anesthesiology
DX: Z01.818 Encounter for other preprocedural examination (principal); Z20.822 Contact with and (suspected) exposure to COVID-19

== ENCOUNTER → 2022-03-15 | Outpatient (REF) | payer OTHER | LOC: M WUC 19:05 → M SMT 19:05 | PROVIDERS: ATTEND Urology | DX: C61 Malignant neoplasm of prostate (principal) ==

== ENCOUNTER → 2022-03-28 | Outpatient (CLI) | payer OTHER | LOC: M LABSMTC 09:05 | PROVIDERS: ATTEND Anesthesiology | DX: Z01.812 Encounter for preprocedural laboratory examination (principal); Z20.822 Contact with and (suspected) exposure to COVID-19 ==

== ENCOUNTER 2022-04-02 06:32 | Day surgery (SDC) | payer OTHER ==
[~2022-04-02] VITALS: Ht 180.3 cm; Wt 103.9 kg
[~2022-04-02 06:32] MED LIST changes: +LIDOCAINE 2% 100MG/5ML SDV (FOR ANES.) As Ordered ONE; +NS 1,000 ML IV ONE; +propofoL 200 MG/20 ML VIAL As Ordered ONE
[2022-04-02 08:45] VITALS: BP 103/59
== END 2022-04-02 08:24 | disposition home or self-care (01) ==
LOC: M OPP 06:32
PROVIDERS: ATTEND Internal Medicine Gastroenterology
DX: Z12.11 Encounter for screening for malignant neoplasm of colon (principal); Z86.010 Personal history of colon polyps; K63.5 Polyp of colon; K62.7 Radiation proctitis; Z85.46 Personal history of malignant neoplasm of prostate; Z92.3 Personal history of irradiation; Z79.1 Long term (current) use of non-steroidal anti-inflammatories (NSAID); Z79.82 Long term (current) use of aspirin; Z79.899 Other long term (current) drug therapy; Z80.1 Family history of malignant neoplasm of trachea, bronchus and lung; Z80.49 Family history of malignant neoplasm of other genital organs

== ENCOUNTER → 2022-09-17 | Outpatient (CLI) | payer OTHER ==
[~2022-09-17] MED LIST changes: -LIDOCAINE 2% 100MG/5ML SDV (FOR ANES.) As Ordered ONE; -NS 1,000 ML IV ONE; -propofoL 200 MG/20 ML VIAL As Ordered ONE
== END ==
LOC: M WUC 10:36
PROVIDERS: ATTEND Family Medicine
DX: R05.3 Chronic cough (principal)

== ENCOUNTER → 2022-12-19 | Outpatient (CLI) | payer OTHER ==
[2022-12-19 12:43] LABS: BASO % 0.8 % (0.0-1.0); EOS # 0.2 10^3/uL (0.0-0.5); EOS % 4.6 % (0.0-3.0); HEMATOCRIT 40.7 % (42.0-52.0); HEMOGLOBIN 12.8 g/dl (13.5-17.5); LYMPH # 0.7 10^3/uL (1.5-5.0); LYMPH % 13.6 % (24.0-44.0); MEAN CORPUSCULAR HEMOGLOBIN 26.4 pg (27.0-33.0); MEAN CORPUSCULAR HGB CONC 31.4 g/dl (32.0-36.5); MEAN CORPUSCULAR VOLUME 83.9 fl (80.0-96.0); MONO # 0.6 10^3/uL (0.0-0.8); MONO % 10.5 % (2.0-8.0); NEUTROPHILS # 3.7 10^3/uL (1.5-8.5); NEUTROPHILS % 69.9 % (36.0-66.0); PLATELET COUNT, AUTOMATED 206 10^3/uL (150-450); RED BLOOD COUNT 4.85 10^6/uL (4.30-6.10); WHITE BLOOD COUNT 5.2 10^3/uL (4.0-10.0)
[2022-12-19 12:47] LABS: HEMOGLOBIN A1c 5.5 % (4.0-6.0)
[2022-12-19 12:57] LABS: ALBUMIN 3.9 G/DL (3.2-5.2); ALKALINE PHOSPHATASE 95 U/L (46-116); ALT/SGPT 48 U/L (7.0-40); AST/SGOT 37 U/L (<34); BILIRUBIN,TOTAL 0.5 MG/DL (0.3-1.2); BLOOD UREA NITROGEN 16 MG/DL (9-23); CALCIUM LEVEL 8.7 MG/DL (8.3-10.6); CARBON DIOXIDE LEVEL 31 MMOL/L (20-31); CHLORIDE LEVEL 102 MMOL/L (98-107); CHOLESTEROL LEVEL 180 MG/DL (<200); CHOLESTEROL RISK RATIO 3.33 (<5); GLOMERULAR FILTRATION RATE > 60.0 (>49); GLUCOSE, FASTING 117 MG/DL (74-106); HDL CHOLESTEROL 53.9 MG/DL (>40); IRON (FE) 43 UG/DL (65-175); LDL CHOLESTEROL 108.5 MG/DL (<100); NON-HDL-C 126 MG/DL; PERCENT SATURATION 14.5 % (19.7-50.0); SODIUM LEVEL 139 MMOL/L (136-145); TOTAL IRON BINDING CAPACITY 297 UG/DL (250-425); TOTAL PROTEIN 6.6 G/DL (5.7-8.2); TRIGLYCERIDES LEVEL 88 MG/DL (<150)
[2022-12-19 12:59] LABS: FERRITIN 287.1 NG/ML (10.5-307.3)
== END ==
LOC: M WUC 10:38
PROVIDERS: ATTEND Family Medicine
DX: I10 Essential (primary) hypertension (principal); E78.5 Hyperlipidemia, unspecified; R73.03 Prediabetes; D50.9 Iron deficiency anemia, unspecified

== ENCOUNTER → 2023-03-18 | Outpatient (CLI) | payer OTHER | LOC: M WUC 15:23 | PROVIDERS: ATTEND Urology | DX: C61 Malignant neoplasm of prostate (principal) ==

== ENCOUNTER → 2023-10-20 | Outpatient (CLI) | payer MEDICARE, OTHER | LOC: M PLALAB 11:20 | PROVIDERS: ATTEND Urology | DX: C61 Malignant neoplasm of prostate (principal) ==

== ENCOUNTER → 2023-12-15 | Outpatient (CLI) | payer MEDICARE, OTHER ==
[2023-12-15 16:54] LABS: BASO % 0.5 % (0.0-1.0); EOS # 0.1 10^3/uL (0.0-0.5); EOS % 1.4 % (0.0-3.0); HEMATOCRIT 44.7 % (42.0-52.0); HEMOGLOBIN 14.1 g/dl (13.5-17.5); LYMPH # 1.4 10^3/uL (1.5-5.0); LYMPH % 16.8 % (24.0-44.0); MEAN CORPUSCULAR HEMOGLOBIN 27.6 pg (27.0-33.0); MEAN CORPUSCULAR HGB CONC 31.5 g/dl (32.0-36.5); MEAN CORPUSCULAR VOLUME 87.5 fl (80.0-96.0); MONO # 0.6 10^3/uL (0.0-0.8); MONO % 6.8 % (2.0-8.0); NEUTROPHILS # 6.2 10^3/uL (1.5-8.5); NEUTROPHILS % 74.1 % (36.0-66.0); PLATELET COUNT, AUTOMATED 291 10^3/uL (150-450); RED BLOOD COUNT 5.11 10^6/uL (4.30-6.10); WHITE BLOOD COUNT 8.3 10^3/uL (4.0-10.0)
[2023-12-15 17:20] LABS: ALBUMIN 3.9 G/DL (3.2-5.2); ALKALINE PHOSPHATASE 70 U/L (46-116); ALT/SGPT 53 U/L (7.0-40); AST/SGOT 22 U/L (<34); BILIRUBIN,TOTAL 0.4 MG/DL (0.3-1.2); BLOOD UREA NITROGEN 22 MG/DL (9-23); CALCIUM LEVEL 9.2 MG/DL (8.3-10.6); CARBON DIOXIDE LEVEL 31 MMOL/L (20-31); CHLORIDE LEVEL 104 MMOL/L (98-107); CHOLESTEROL LEVEL 175 MG/DL (<200); CHOLESTEROL RISK RATIO 2.74 (<5); CREATININE FOR GFR 0.84 MG/DL (0.70-1.30); GLOMERULAR FILTRATION RATE > 60.0 (>49); GLUCOSE, FASTING 87 MG/DL (74-106); HDL CHOLESTEROL 63.8 MG/DL (>40); IRON (FE) 108 UG/DL (65-175); LDL CHOLESTEROL 83.2 MG/DL (<100); NON-HDL-C 111.2 MG/DL; PERCENT SATURATION 38.4 % (19.7-50.0); POTASSIUM SERUM 4.2 MMOL/L (3.5-5.1); SODIUM LEVEL 137 MMOL/L (136-145); TOTAL IRON BINDING CAPACITY 281 UG/DL (250-425); TOTAL PROTEIN 6.8 G/DL (5.7-8.2); TRIGLYCERIDES LEVEL 140 MG/DL (<150)
[2023-12-15 17:21] LABS: FERRITIN 534.2 NG/ML (10.5-307.3)
[2023-12-15 17:22] LABS: FREE T4 1.19 NG/DL (0.89-1.76); THYROID STIMULATING HORMONE 1.834 uIU/ML (0.55-4.78)
[2023-12-15 17:45] LABS: HEMOGLOBIN A1c 5.7 % (4.0-6.0)
== END ==
LOC: M WUC 11:50
PROVIDERS: ATTEND Family Medicine
DX: E66.9 Obesity, unspecified (principal); E78.2 Mixed hyperlipidemia; D50.9 Iron deficiency anemia, unspecified; Z79.899 Other long term (current) drug therapy

== ENCOUNTER → 2023-12-26 | Outpatient (CLI) | payer MEDICARE, OTHER | LOC: M SLEEP HO 11:09 | PROVIDERS: ATTEND Family Medicine | DX: G47.33 Obstructive sleep apnea (adult) (pediatric) (principal); R06.83 Snoring ==

== ENCOUNTER → 2024-04-26 | Outpatient (CLI) | payer MEDICARE, OTHER | LOC: M WUC 10:26 | PROVIDERS: ATTEND Urology | DX: Z85.46 Personal history of malignant neoplasm of prostate (principal) ==

== ENCOUNTER → 2024-07-29 | Outpatient (CLI) | payer MEDICARE, OTHER | LOC: M WUC 11:14 | PROVIDERS: ATTEND Urology | DX: C61 Malignant neoplasm of prostate (principal) ==

== ENCOUNTER → 2024-10-27 | Outpatient (CLI) | payer MEDICARE, OTHER | LOC: M WUC 10:39 | PROVIDERS: ATTEND Urology | DX: C61 Malignant neoplasm of prostate (principal) ==

== ENCOUNTER → 2024-11-28 | Outpatient (CLI) | payer MEDICARE, OTHER | LOC: M SLEEP 20:00 | PROVIDERS: ATTEND Physician Assistant | DX: G47.33 Obstructive sleep apnea (adult) (pediatric) (principal) ==

== ENCOUNTER → 2025-01-11 | Outpatient (REF) | payer MEDICARE, OTHER | LOC: M SMT PRO 12:50 | PROVIDERS: ATTEND Urology | DX: C61 Malignant neoplasm of prostate (principal); Z92.3 Personal history of irradiation; Z92.29 Personal history of other drug therapy; Z79.82 Long term (current) use of aspirin; Z79.899 Other long term (current) drug therapy; Z91.09 Other allergy status, other than to drugs and biological substances; Z80.1 Family history of malignant neoplasm of trachea, bronchus and lung ==

== ENCOUNTER → 2025-02-23 | Outpatient (CLI) | payer MEDICARE, OTHER | LOC: M WUC 11:28 | PROVIDERS: ATTEND Urology | DX: C61 Malignant neoplasm of prostate (principal) ==

== ENCOUNTER → 2025-02-23 | Outpatient (CLI) | payer MEDICARE, OTHER ==
[2025-02-23 14:28] LABS: BASO % 0.5 % (0.0-1.0); EOS # 0.1 10^3/uL (0.0-0.5); HEMATOCRIT 40.4 % (42.0-52.0); HEMOGLOBIN 13.6 g/dl (13.5-17.5); LYMPH # 1.1 10^3/uL (1.5-5.0); MEAN CORPUSCULAR HEMOGLOBIN 28.9 pg (27.0-33.0); MEAN CORPUSCULAR HGB CONC 33.7 g/dl (32.0-36.5); MEAN CORPUSCULAR VOLUME 85.8 fl (80.0-96.0); MONO # 0.5 10^3/uL (0.0-0.8); MONO % 8.5 % (2.0-8.0); NEUTROPHILS # 4.3 10^3/uL (1.5-8.5); NEUTROPHILS % 70.8 % (36.0-66.0); PLATELET COUNT, AUTOMATED 215 10^3/uL (150-450); RED BLOOD COUNT 4.71 10^6/uL (4.30-6.10); WHITE BLOOD COUNT 6.1 10^3/uL (4.0-10.0)
[2025-02-23 14:30] LABS: ALKALINE PHOSPHATASE 72 U/L (40-129); ALT/SGPT 25 U/L (7.0-40); AST/SGOT 22 U/L (<34); BILIRUBIN,TOTAL 0.5 MG/DL (0.3-1.2); BLOOD UREA NITROGEN 21 MG/DL (9-23); CALCIUM LEVEL 9.3 MG/DL (8.3-10.6); CARBON DIOXIDE LEVEL 30 MMOL/L (20-31); CHLORIDE LEVEL 108 MMOL/L (98-107); CHOLESTEROL LEVEL 176 MG/DL (<200); CHOLESTEROL RISK RATIO 2.67 (<5); CREATININE FOR GFR 0.91 MG/DL (0.70-1.30); GLOMERULAR FILTRATION RATE > 60.0 (>49); GLUCOSE, FASTING 84 MG/DL (74-106); HDL CHOLESTEROL 65.8 MG/DL (>40); IRON (FE) 136 UG/DL (65-175); NON-HDL-C 110.2 MG/DL; PERCENT SATURATION 46.3 % (19.7-50.0); POTASSIUM SERUM 4.3 MMOL/L (3.5-5.1); SODIUM LEVEL 142 MMOL/L (136-145); TOTAL IRON BINDING CAPACITY 294 UG/DL (250-425); TOTAL PROTEIN 6.4 G/DL (5.7-8.2); TRIGLYCERIDES LEVEL 76 MG/DL (<150)
[2025-02-23 14:33] LABS: FERRITIN 421.7 NG/ML (10.5-307.3)
[2025-02-23 15:26] LABS: HEMOGLOBIN A1c 4.9 % (4.0-6.0)
== END ==
LOC: M WUC 11:25
PROVIDERS: ATTEND Family Medicine
DX: Z00.00 Encounter for general adult medical examination without abnormal findings (principal); C61 Malignant neoplasm of prostate; E78.5 Hyperlipidemia, unspecified; D50.9 Iron deficiency anemia, unspecified; R73.03 Prediabetes

== ENCOUNTER → 2025-08-03 | Outpatient (CLI) | payer MEDICARE, OTHER | LOC: M WUC 10:17 | PROVIDERS: ATTEND Urology | DX: C61 Malignant neoplasm of prostate (principal) ==